=== PATIENT | male | born 1940 | race Caucasian/White ===

== ENCOUNTER → 2017-05-30 | Outpatient (CLI) | payer MEDICARE, OTHER ==
[~2017-05-30] MED LIST: ACET500T68 PO; ASP325 PO; ASPI-757 PO; ASPIRIN; CEP500 PO; CINN500C12 PO; FAM20 PO; IBU600 PO; LISI2.5T60 PO; LOR5/325 PO
[2017-05-30 08:49] LABS: LDL CHOLESTEROL 117 mg/dl
== END ==
LOC: LAB 07:31
PROVIDERS: ATTEND Internal Medicine
DX: I10 Essential (primary) hypertension (principal); E78.5 Hyperlipidemia, unspecified
CPT/HCPCS: 36415; 82040; 82247; 82310; 82374; 82435; 82465; 82565; 82947; 83718; 84075; 84132; 84155; 84295; 84450; 84460; 84478; 84520

== ENCOUNTER → 2017-12-10 | Outpatient (CLI) | payer MEDICARE, OTHER ==
[~2017-12-10] MED LIST changes: +ASPI81TA94 PO
[2017-12-10 07:55] LABS: LDL CHOLESTEROL 109 mg/dl
== END ==
LOC: LAB 06:37
PROVIDERS: ATTEND Internal Medicine
DX: Z12.5 Encounter for screening for malignant neoplasm of prostate (principal); I10 Essential (primary) hypertension; E78.5 Hyperlipidemia, unspecified
CPT/HCPCS: 36415; G0103; 82040; 82247; 82310; 82374; 82435; 82465; 82565; 82947; 83718; 84075; 84132; 84153; 84155; 84295; 84450; 84460; 84478; 84520

== ENCOUNTER → 2018-05-14 | Outpatient (CLI) | payer MEDICARE, OTHER ==
[2018-05-14 07:08] LABS: LDL CHOLESTEROL 115 mg/dl
== END ==
LOC: LAB 06:38
PROVIDERS: ATTEND Internal Medicine
DX: E78.5 Hyperlipidemia, unspecified (principal); I10 Essential (primary) hypertension
CPT/HCPCS: 36415; 82040; 82247; 82310; 82374; 82435; 82465; 82565; 82947; 83718; 84075; 84132; 84155; 84295; 84450; 84460; 84478; 84520

== ENCOUNTER → 2018-10-01 | Outpatient (CLI) | payer MEDICARE, OTHER ==
[2018-10-01 14:59] LABS: PLATELET COUNT, AUTOMATED 334 K/uL (150-450)
--- NOTE | 2018-10-01 15:06 | EKG ---
FACILITY: [facility] - [place] PATIENT NAME: JACQUI PERAZA : [id number] MR: [id number] V: [id number] EXAM DATE: ORDERING PHYSICIAN: MARIAM FOWLER TECHNOLOGIST: NOAH Test Reason : A FIB Blood Pressure : / mmHG Vent. Rate : 071 BPM Atrial Rate : 256 BPM P-R Int : 000 ms QRS Dur : 092 ms QT Int : 414 ms P-R-T Axes : 000 -10 -01 degrees QTc Int : 449 ms Atrial flutter with variable AV block Abnormal ECG No previous ECGs available Confirmed by VANI JOSEPH ([id number]) on 10/02/2018 12:59:09 AM Referred By: LYLA Confirmed By:VANI JOSEPH
== END ==
LOC: LAB 14:27
PROVIDERS: ATTEND Family Medicine
DX: R17 Unspecified jaundice (principal); R19.7 Diarrhea, unspecified; R63.0 Anorexia; R63.4 Abnormal weight loss; I48.91 Unspecified atrial fibrillation
CPT/HCPCS: 36415; 80074; 81001; 82150; 82248; 83690; 84443; 85025; G0472; 82040; 82247; 82310; 82374; 82435; 82565; 82947; 84075; 84132; 84155; 84295; 84450; 84460; 84520; 86803

== ENCOUNTER → 2018-10-01 | Outpatient (CLI) | payer MEDICARE, OTHER ==
[~2018-10-01] MED LIST changes: +IOPAMIDOL 76% 100 ML INFUS BTL 100 ML ONE
--- NOTE | 2018-10-01 18:21 | RADIOLOGY IMAGING REPORT ---
FACILITY: [facility] - [place] PATIENT NAME: Kristofer Arredondo : 1940 MR: [id number] V: [id number] EXAM DATE: ORDERING PHYSICIAN: MARIAM FOWLER TECHNOLOGIST: [place] [facility] [place] Patient: Kristofer Arredondo : 1940 Visit/Account:[id number] Date of Sevice: 10/01/2018 ADDENDUM #1 ADDENDUM: These findings were discussed with MARIAM FOWLER at 10/01/2018 6:31 PM. Report Dictated By: Laurent Bautista MD at 10/01/2018 6:31 PM Report E-Signed By: Laurent Bautista MD at 10/01/2018 6:31 PM ORIGINAL REPORT EXAMINATION: CT abdomen with IV contrast CT pelvis with IV contrast HISTORY: Jaundice. Weight loss. Diarrhea. Black urine. COMPARISON: None. TECHNIQUE: Axial images were taken through the abdomen and pelvis with intravenous contrast. Sagitt al and coronal reformatted images are also submitted. CONTRAST: 75 mL of IV Isovue-370 One of the following dose optimization techniques was utilized in the performance of this exam: Autom ated exposure control; adjustment of the mA and/or kV according to the patient's size; or use of an i terative reconstruction technique. Specific details can be referenced in the facility's radiology C T exam operational policy. FINDINGS: Liver/biliary: Diffuse dilation of the intrahepatic and extrahepatic biliary ducts with narrowing of the common bile duct at the pancreatic head. There is a 1.2 cm cyst in the right hepatic lobe. There is prominent distention of the gallbladder. Pancreas: There is a 2.5 cm hypoattenuating mass in the head of the pancreas. There is a 9 mm cystic- appearing lesion in the body of the pancreas. There is a 10 mm cystic-appearing lesion in the tail of the pancreas. There is mild dilation of the pancreatic duct. Spleen: Negative. Adrenal glands: Negative. Kidneys: Negative. Pelvic structures: The prostate is enlarged, measuring 5.3 cm in transverse dimension. Bowel: Colonic diverticulosis without evidence of diverticulitis. Normal appendix. Small sliding hiat al hernia. Mildly thickened appearance of the lower esophageal sphincter. Peritoneum/retroperitoneum/mesenteries: No intraperitoneal free air or free fluid. Vessels: Mild plaque along the aorta and iliac arteries. Mild calcified plaque at the renal artery or igins. Musculoskeletal/body wall: Mild left convex curvature of the lumbar spine. Advanced disc degenerative changes throughout the lower lumbar spine and at multiple levels in the lower thoracic spine. Multil evel facet hypertrophy in the lumbar spine. A 2.7 cm lucent lesion with stippled calcifications in th e proximal right femur in the intertrochanteric region, likely an enchondroma. Small fat-containing r ight inguinal hernia. Lymph node assessment: Multiple subcentimeter retroperitoneal and mesenteric lymph nodes. Lower chest: Mild peripheral fibrosis at the lung bases. IMPRESSION: There is a 2.5 cm hypoattenuating mass in the head of the pancreas. This is suspicious for pancreatic adenocarcinoma. The pancreatic head mass is causing obstruction of the common bile duct. There is diffuse dilation of the intrahepatic and extrahepatic biliary ducts and prominent distention of the gallbladder. There is a 9 mm cystic lesion in the body of the pancreas, a 10 mm cystic lesion in the tail the panc reas, and mild dilation of the pancreatic duct. There is a small hiatal hernia and there is a mildly thickened appearance of the lower esophageal sph incter. This thickened appearance could be due to muscular contraction or hypertrophy, however, infla mmation or neoplasm would also be possibilities. Multiple nonacute findings as detailed in the body of the report. Report Dictated By: Laurent Bautista MD at 10/01/2018 5:57 PM Report E-Signed By: Laurent Bautista MD at 10/01/2018 6:17 PM WSN:[id number]
== END ==
LOC: CT 16:43
PROVIDERS: ATTEND Family Medicine
DX: R17 Unspecified jaundice (principal); R19.7 Diarrhea, unspecified; R63.4 Abnormal weight loss
CPT/HCPCS: 74177; Q9967

== ENCOUNTER 2018-10-16 21:09 | Inpatient (IN) | payer MEDICARE, OTHER ==
[~2018-10-16] VITALS: Ht 182.9 cm; Wt 90.7 kg
[~2018-10-16 21:09] MED LIST changes: -CEFE2VIA13 IVP; -ENOX40DI9 SC; -VANC1.756 IV; -[UNRECOGNIZED DRUG - CODE] IVP
[2018-10-16] MEDS ORDERED: LR(*) 1000 ML BAG 2,400 ML IV ONE (21:20)
--- NOTE | 2018-10-16 21:24 | ER Report ---
History and Physical Time Seen By MD: 21:10 HPI/ROS CHIEF COMPLAINT: Found down HISTORY OF PRESENT ILLNESS: 77-year-old male recently diagnosed with pancreatic cancer, has not initiated treatment. Patient has history of hypertension but no other medical problems. Patient has had diarrhea today with 4 loose, nonbloody, nonblack stools. He also notes that urine is dark. He thinks he may have fallen or passed out trying to get in bed. He does not recall events very well. Per his , she checks on him every 30 minutes and noticed that he was on the ground on his last check. Patient is not complaining of pain. He denies shortness of breath, chest pain, fevers, abdominal pain. REVIEW OF SYSTEMS: Constitutional: No fever, no chills. Eyes: No discharge. ENT: No sore throat. Cardiovascular: No chest pain, no palpitations. Respiratory: No cough, no shortness of breath. Gastrointestinal: No abdominal pain, no vomiting. Diarrhea as above Genitourinary: as above Musculoskeletal: No back pain. Skin: jaundice Neurological: No headache. Remainder of the 14 system rev: Yes Allergies: Coded Allergies: Tetracyclines (Verified Allergy, Unknown, 12/25/13) Home Meds Active Scripts Lisinopril (LISINOPRIL) 2.5 Mg Tablet, 1 TAB PO QDAY, #90 TAB 4 Refills Prov:HOWARD CLEMENS MD 12/19/17 Reported Medications Aspirin (ASPIRIN) 81 Mg Tab.chew, 1 TAB PO QDAY, TAB.CHEW 06/06/17 Discontinued Reported Medications Cinnamon Bark (CINNAMON) 500 Mg Capsule, 1 CAP PO DAILY PRN for prn, CAPSULE 12/01/13 Reviewed Nurses Notes: Yes Old Medical Records Reviewed: Yes Smoking Status: Former Smoker Constitutional Vital Sign - Last 24 Hours 10/16/18 10/16/18 10/16/18 10/16/18 21:09 21:19 21:29 21:39 Pulse ? 10/16/18 10/16/18 10/16/18 10/16/18 21:46 21:49 21:59 22:09 Temp 97.9 Pulse 110 ? Resp 22 B/P (MAP) 82/57 Pulse Ox 90 O2 Delivery Room Air 10/16/18 10/16/18 10/16/18 10/16/18 22:16 22:19 22:20 22:29 Pulse 82 86 Resp 20 10 B/P (MAP) 147/120 (129) 86/51 (63) Pulse Ox 95 93 10/16/18 10/16/18 10/16/18 10/16/18 22:30 22:34 22:36 22:39 Pulse 90 Resp 15 B/P (MAP) 97/70 (79) 121/87 (98) 99/66 (77) Pulse Ox 93 10/16/18 10/16/18 10/16/18 10/16/18 22:44 22:54 23:00 23:04 Pulse ? 86 Resp 46 12 B/P (MAP) 97/64 (75) Pulse Ox 93 94 10/16/18 10/16/18 10/16/18 23:14 23:24 23:34 Pulse 78 83 79 Resp 26 11 21 B/P (MAP) 67/51 (56) Pulse Ox 94 96 94 Intake and Output 10/16/18 10/16/18 10/17/18 15:01 23:01 07:01 Intake Total 2415 ml Balance 2415 ml Physical Exam General Appearance: The patient is alert, has no immediate need for airway protection and no signs of toxicity. Eyes: Pupils equal and round no pallor or injection. Scleral icterus ENT, Mouth: Mucous membranes are moist. Respiratory: There are no retractions, lungs are clear to auscultation. Cardiovascular: irregular rate, borderline tachycardia Gastrointestinal: Abdomen is soft and non tender, no masses, bowel sounds normal. Neurological: awake, alert, oriented to person and place, not to events Skin: jaundiced throughout Musculoskeletal: Neck is supple non tender. Extremities are nontender, nonswollen and have full range of motion. DIFFERENTIAL DIAGNOSIS: After history and physical exam differential diagnosis was considered for sepsis, dehydration, electrolyte abnormality, trauma from fall or other emergent cause of symptoms Medical Decision Making Data Points Result Diagram: 10/16/18212010/16/182120 Laboratory Hematology Test 10/16/18 21:21 10/16/18 22:50 Red Blood Count 3.98 M/uL (4.00-5.60) Mean Corpuscular Volume 96.4 fL (80.0-96.0) Mean Corpuscular Hemoglobin 33.0 pg (26.0-33.0) Mean Corpuscular Hemoglobin Concent 34.2 g/dL (32.0-36.0) Red Cell Distribution Width 16.9 % (11.5-14.5) Mean Platelet Volume 9.7 fL (7.2-11.1) Neutrophils (%) (Auto) % (39.4-72.5) Lymphocytes (%) (Auto) % (17.6-49.6) Monocytes (%) (Auto) % (4.1-12.4) Eosinophils (%) (Auto) % (0.4-6.7) Basophils (%) (Auto) % (0.3-1.4) Nucleated RBC Relative Count (auto) /100WBC Neutrophils # (Auto) K/uL (2.0-7.4) Lymphocytes # (Auto) K/uL (1.3-3.6) Monocytes # (Auto) K/uL (0.3-1.0) Eosinophils # (Auto) K/uL (0.0-0.5) Basophils # (Auto) K/uL (0.0-0.1) Nucleated RBC Absolute Count (auto) K/uL Neutrophils % (Manual) 60 % (39.4-72.5) Band Neutrophils % 33 % Lymphocytes % (Manual) 3 % (17.6-49.6) Monocytes % (Manual) 3 % (4.1-12.4) Eosinophils % (Manual) 0 % (0.4-6.7) Basophils % (Manual) 0 % (0.3-1.4) Metamyelocytes % 1 % Target Cells 1+ Peripheral Blood Smear Yes Y/N Sodium Level 136 mmol/L (137-145) Potassium Level 3.1 mmol/L (3.5-5.0) Chloride Level 105 mmol/L (98-107) Carbon Dioxide Level 17 mmol/L (22-30) Blood Urea Nitrogen 24 mg/dl (9-21) Creatinine 1.00 mg/dl (0.66-1.25) Glomerular Filtration Rate Calc > 60.0 Random Glucose 114 mg/dl (75-110) Lactate 4.6 mmol/L (0.7-2.1) Calcium Level 8.7 mg/dl (8.4-10.2) Total Bilirubin 18.5 mg/dl (0.2-1.3) Aspartate Amino Transf (AST/SGOT) 193 U/L (0-35) Alanine Aminotransferase (ALT/SGPT) 162 U/L (0-56) Alkaline Phosphatase 286 U/L (0-126) Total Protein 6.4 g/dl (6.3-8.2) Albumin 3.0 g/dl (3.5-5.0) Lipase 169 U/L (23-300) Stool Leukocytes, Qualitative Positive Chemistry Test 10/16/18 21:21 10/16/18 22:50 White Blood Count 22.2 k/uL (4.5-11.0) Red Blood Count 3.98 M/uL (4.00-5.60) Hemoglobin 13.1 g/dL (14.0-18.0) Hematocrit 38.4 % (42.0-52.0) Mean Corpuscular Volume 96.4 fL (80.0-96.0) Mean Corpuscular Hemoglobin 33.0 pg (26.0-33.0) Mean Corpuscular Hemoglobin Concent 34.2 g/dL (32.0-36.0) Red Cell Distribution Width 16.9 % (11.5-14.5) Platelet Count 380 K/uL (150-450) Mean Platelet Volume 9.7 fL (7.2-11.1) Neutrophils (%) (Auto) % (39.4-72.5) Lymphocytes (%) (Auto) % (17.6-49.6) Monocytes (%) (Auto) % (4.1-12.4) Eosinophils (%) (Auto) % (0.4-6.7) Basophils (%) (Auto) % (0.3-1.4) Nucleated RBC Relative Count (auto) /100WBC Neutrophils # (Auto) K/uL (2.0-7.4) Lymphocytes # (Auto) K/uL (1.3-3.6) Monocytes # (Auto) K/uL (0.3-1.0) Eosinophils # (Auto) K/uL (0.0-0.5) Basophils # (Auto) K/uL (0.0-0.1) Nucleated RBC Absolute Count (auto) K/uL Neutrophils % (Manual) 60 % (39.4-72.5) Band Neutrophils % 33 % Lymphocytes % (Manual) 3 % (17.6-49.6) Monocytes % (Manual) 3 % (4.1-12.4) Eosinophils % (Manual) 0 % (0.4-6.7) Basophils % (Manual) 0 % (0.3-1.4) Metamyelocytes % 1 % Target Cells 1+ Peripheral Blood Smear Yes Y/N Glomerular Filtration Rate Calc > 60.0 Lactate 4.6 mmol/L (0.7-2.1) Calcium Level 8.7 mg/dl (8.4-10.2) Total Bilirubin 18.5 mg/dl (0.2-1.3) Aspartate Amino Transf (AST/SGOT) 193 U/L (0-35) Alanine Aminotransferase (ALT/SGPT) 162 U/L (0-56) Alkaline Phosphatase 286 U/L (0-126) Total Protein 6.4 g/dl (6.3-8.2) Albumin 3.0 g/dl (3.5-5.0) Lipase 169 U/L (23-300) Stool Leukocytes, Qualitative Positive Microbiology Microbiology Date/Time Source Procedure Growth Status 10/16/18 22:50 Stool Gram Stain - Final Resulted 10/16/18 22:50 Stool Stool Culture Pending Resulted EKG/Imaging EKG Interpretation 12 lead EKG: Rhythm: atrial flutter Morrill: normal QRS: normal ST segments: normal atrial flutter with predominantly 3:1 block Monitor Interpretation: Atrial Flutter ED Course/Re-evaluation ED Course 77 y/o m recently dx'd this month with pancreatic cancer, awaiting staging; He is awaiting GI evaluation for endoscopic US of pancreatic mass, PET/CT next sunday for staging Presents after apparent syncopal event and loose stools. Labs sig for 33 bands, with unclear source of infection. Pt remains hypotensive despite 30mL/kg. At this point, I initiated peripheral norepi while consenting for and completing r ij entral line. This performed without complications. Post CL CXR without ptx, cl in place. Pt admitted to ICU in improved condition Procedure Procedure: Central line placement. After written informed consent from ; with the risks explained to be bleeding, infection, and collapsed lung; maximal sterile barrier technique was uses including cap, gown, sterile gloves, large sheet, hand washing and chlorhexidine prep. The area anesthetized with 1% lidocaine. The right IJ was punctured with a 19 gauge finder needle, then a wire introducer was placed, a 7 Nigerien triple lumen was placed using Seldinger technique. There were no compl ications. Blood return low pressure, dark blood. Patient tolerated procedure well. CXR results: Appropriate line placement, and no pneumothorax. Xray was interpreted by myself. Radiologist interpretation is pending. The procedure was performed by myself. Decision to Disposition Date: Oct 17, 2018 Decision to Disposition Time: 00:45 Critical Care Time I spent a total of 65 minutes of critical care time in obtaining history, per forming a physical exam, bedside monitoring of interventions, collecting and interpreting tests and discussion with consultants but not including time spent performing procedures. Depart Departure Latest Vital Signs Vital Signs Date Time Temp Pulse Resp B/P (MAP) Pulse Ox O2 Delivery O2 Flow Rate FiO2 10/16/18 23:34 79 21 67/51 (56) 94 10/16/18 21:46 97.9 Room Air Impression: Primary Impression: Septic shock Condition: Improved Disposition: Admitted from ER Referrals: MARIAM FOWLER DO (PCP) NOEMI ALBARRAN MD Oct 16, 2018 21:24
--- NOTE | 2018-10-16 21:33 | EKG ---
FACILITY: [facility] PATIENT NAME: JACQUI PERAZA : [id number] MR: [id number] V: [id number] EXAM DATE: ORDERING PHYSICIAN: NOEMI ALBARRAN TECHNOLOGIST: NGOZI Test Reason : CP Blood Pressure : / mmHG Vent. Rate : 094 BPM Atrial Rate : 264 BPM P-R Int : 000 ms QRS Dur : 096 ms QT Int : 358 ms P-R-T Axes : 092 -09 -09 degrees QTc Int : 447 ms Atrial flutter with variable AV block Abnormal ECG When compared with ECG of 01-OCT-2018 14:58, No significant change was found Confirmed by SHANTANU RODRÍGUEZ ([id number]) on 10/17/2018 6:05:32 AM Referred By: Confirmed By:SHANTANU RODÍRGUEZ
[2018-10-16 21:50] LABS: PLATELET COUNT, AUTOMATED 380 K/uL (150-450)
[2018-10-16] MEDS ORDERED: VANCOMYCIN(*) 1 GM VIAL 2 GM in NS(*) 0.9% 250 ML BAG 250 ML IVPB ONE (22:10)
[2018-10-16] MEDS ORDERED: CEFEPIME HCL 2 GM VIAL IVP ONE (22:10)
[2018-10-16] MEDS ORDERED: LEVOPHED KIT (*) 1 IVSOL 1 KIT in D5W(*) 250 ML BAG 250 ML IVPB ONE (22:15)
--- NOTE | 2018-10-16 22:16 | RADIOLOGY IMAGING REPORT ---
FACILITY: [facility] - [place] PATIENT NAME: Kristofer Arredondo : 1940 MR: [id number] V: [id number] EXAM DATE: ORDERING PHYSICIAN: NOEMI ALBARRAN TECHNOLOGIST: Location: [facility] - [place] Patient: Kristofer Arredondo : 1940 Visit/Account:[id number] Date of Sevice: 10/16/2018 AP CHEST 10/16/2018 9:19 PM. INDICATION: Dyspnea. COMPARISON: CT abdomen and pelvis 10/01/2018. FINDINGS: Lungs are well-expanded. Diffuse interstitial changes are likely chronic given the appearance of the lung bases on the prior CT. No suspicious consolidation. No pleural effusion or pneumothorax. Heart size is normal. IMPRESSION: Probable chronic interstitial changes with no apparent acute abnormality. Report Dictated By: Luke Monroy MD at 10/16/2018 10:07 PM Report E-Signed By: Luke Monroy MD at 10/16/2018 10:11 PM WSN:[id number]
[2018-10-17] VITALS (91 sets, daily range): BP systolic 68–147; BP diastolic 32–132
--- NOTE | 2018-10-17 00:38 | RADIOLOGY IMAGING REPORT ---
FACILITY: [facility] - [place] PATIENT NAME: Kristofer Arredondo : 1940 MR: [id number] V: [id number] EXAM DATE: ORDERING PHYSICIAN: NOEMI ALBARRAN TECHNOLOGIST: [place] [facility] [place] Kristofer Arredondo : 1940 Visit/Account:[id number] Date of Sevice: 10/16/2018 AP CHEST 10/16/2018 11:40 PM. INDICATION: Central line placement. COMPARISON: Same-day radiograph. FINDINGS: New right IJ central venous catheter terminates near the superior vena cava. Lung expansion is slightly decreased. There is increased interstitial prominence compared to the too or examination. No definite pleural effusion or pneumothorax. Heart size is unchanged. IMPRESSION: 1. New right IJ central venous catheter appears appropriately positioned. 2. Question developing pulmonary edema.. Report Dictated By: Luke Monroy MD at 10/17/2018 12:30 AM Report E-Signed By: Luke Monroy MD at 10/17/2018 12:32 AM WSN:[id number]
[2018-10-17] MEDS ORDERED: KCL 2 MEQ/ML 20 MEQ/10 ML VIAL 20 MEQ in NS(*) 0.9% 1000 ML BAG 1,000 ML IV PRN (00:57)
[2018-10-17] MEDS ORDERED: NOREPINE BITAR* 4 MG/4 ML AMP 4 MG in D5W(*) 250 ML BAG 246 ML IV PRN (01:00)
[2018-10-17] MEDS ORDERED: NS(*) 0.9% 1000 ML BAG 1,000 ML ONE ×2 (01:00→04:22)
[2018-10-17] MEDS ORDERED: INFLUENZA VIRUS VAC 0.5ML SYR IM ONLY ONE (01:00)
--- NOTE | 2018-10-17 01:14 | History & Physical ---
History of Present Illness Chief Complaint Weakness History of Present Illness This patient presented to the emergency room with complaints of weakness and fatigue. He was diagnosed with pancreatic cancer one week ago, but has not started treatments yet. He did have a pancreatic biopsy and stent placement one week ago in [place]. He also had a ureteral stent placed. His family does report that he had a fall earlier today. History Problems: (1) Pancreatic cancer (2) Essential hypertension Status: Acute Home Meds Active Scripts Lisinopril (LISINOPRIL) 2.5 Mg Tablet, 1 TAB PO QDAY, #90 TAB 4 Refills Prov:HOWARD CLEMENS MD 12/19/17 Reported Medications Aspirin (ASPIRIN) 81 Mg Tab.chew, 1 TAB PO QDAY, TAB.CHEW 06/06/17 Discontinued Reported Medications Cinnamon Bark (CINNAMON) 500 Mg Capsule, 1 CAP PO DAILY PRN for prn, CAPSULE 12/01/13 Allergies: Coded Allergies: Tetracyclines (Verified Allergy, Unknown, 12/25/13) Patient History: AIDS MOTHER (Polycythemia, transfusions and of brain cancer.), , Age:78 (blood transfusion) FH: CHF (congestive heart failure) Paternal Grandmother, , Age:92 FH: brain tumor MOTHER (Polycythemia, transfusions and of brain cancer.), , Age:78 FH: hypertension BROTHER OR SISTER (Age 73 and has hypertension), Age:78 FH: polycythemia vera MOTHER (Polycythemia, transfusions and of brain cancer.), , Age:78 FH: prostate cancer FATHER ( of Prostate Cancer), , Age:77, Onset:75 Hypoglycemia MOTHER (Polycythemia, transfusions and of brain cancer.), , Age:78 Smoking Status: Former Smoker Review of Systems All Systems Reviewed/Normal: Yes, Except as Noted Neurological: Weakness Gastrointestinal: Diarrhea Exam Vital Signs Vital Signs Date Time Temp Pulse Resp B/P (MAP) Pulse Ox O2 Delivery O2 Flow Rate FiO2 10/17/18 00:30 182/128 (146) 10/17/18 00:29 87 ??? 88 10/16/18 21:46 97.9 Room Air Neuro: No Gross deficits Eyes: PERRLA Cardiovascular: Regular Rate and Rhythm Respiratory: Clear to Auscultation GI: Abd Soft and Non-Tender Extremities: No Edema Integumentary: Jaundice Medical Decision Making Data Points Result Diagram: 10/16/18212010/16/182120 Assessment and Plan Problems: (1) Septic shock Status: Acute Assessment & Plan: He does have hypotension, an elevated WBC, and lactic aci dosis. He received a fluid bolus in the emergency department and was also started on a norepinephrine infusion. His repeat lactate remains elevated and we are repeating the fluid bolus. We have also started him on hydrocortisone. The source of his infection is unclear at this time. A urine culture has been ordered. We have placed him on empiric treatment with vancomycin and cefepime. (2) Pancreatic cancer Assessment & Plan: He was diagnosed with pancreatic cancer one week ago. He is followed through the Cancer Center, but has not yet started treatments. He is significantly jaundiced. Copies to: ELMA HARRISON MD ; Venous Thromboembolism Antithrombotics Is Pt On Any Antithrombotics?: No Exam Sepsis Risk: No Definite Risk SHANTANU RODRÍGUEZ DO Oct 17, 2018 01:14
[2018-10-17] MEDS ORDERED: IV BOLUS 500 ML IVSOL IV ONE (01:15)
[2018-10-17] MEDS: HYDROCORTISONE 100 MG/2 ML IVP SCH ×3 (01:28→17:27)
[2018-10-17] MEDS: ZOLPIDEM TARTRATE 10 MG TAB PO PRN ×2 (01:28→20:59)
[2018-10-17] MEDS ORDERED: NS 0.9% IV ONE (01:30)
[2018-10-17] MEDS ORDERED: KCL/NS* 20 MEQ/1000 ML PREMIX 1,000 ML IV ONE (04:29)
[2018-10-17 05:55] LABS: PLATELET COUNT, AUTOMATED 281 K/uL (150-450)
[2018-10-17] MEDS ORDERED: IOPAMIDOL 76% 100 ML INFUS BTL 100 ML ONE (07:58)
--- NOTE | 2018-10-17 08:53 | Hospitalist Progress Note ---
Subjective Progress Notes Subjective He is awake and answers questions. He denies any "aches or pains" or N/V. Physical Exam Vital Signs Date Time Temp Pulse Resp B/P (MAP) Pulse Ox O2 Delivery O2 Flow Rate FiO2 10/17/18 07:15 85 23 113/83 (93) 91 Nasal Cannula 3.0 10/17/18 06:00 102.0 Intake and Output 10/17/18 07:01 Intake Total 5998.1 ml Output Total 560 ml Balance 5438.1 ml Intake Oral 50 ml IV Total 5948.1 ml Output Urine Total 560 ml # Bowel Movements 1 General Appearance: Awake, Other (deeply jaundiced/he is oriented to person and place, but not time) Neuro: Other (moves all four extremities) Eyes: Other (scleral icterus) ENT: Oropharynx Clear Neck: No Masses Cardiovascular: Other (Fairly regular distant tones/no obvious murmur) Respiratory: Other (poor effort but fairly clear) Chest: No Tenderness GI: Other (obese/soft/nontender to palpation/BS present) Extremities: Warm, Perfused Integumentary: Other (deeply jaundiced) Result Diagram: 10/17/18 0506 10/17/18 0506 Monitor Interpretation: Atrial Flutter Assessment and Plan Problems: (1) Septic shock Status: Acute Assessment & Plan: He did present with hypotension, an elevated WBC, and lactic acidosis. He has received aggressive IV fluids and started on a norepinephrine infusion. We have also started him on Levophed and hydrocortisone. The source of his infection is not completely clear at this time. Blood, stool and urine cultures are pending. We currently have him on empiric treatment with IV vancomycin and cefepime. Will get CT scan of his chest, abdomen and pelvis to see if can elucidate a source. Would suspect his biliary system is probable/possible source, especially given recent stent placement. (2) Pancreatic cancer Assessment & Plan: He was diagnosed with pancreatic cancer one week ago. He had biopsy and biliary stent placed on Sun10/11/18 in [place], [place]. Will see if can get records. He is followed through the Cancer Center, but has not yet started treatments. (3) UNSPECIFIED ATRIAL FLUTTER Assessment & Plan: He is currently rate controlled. Unknown how long this has been present. EKG from a few weeks ago showed it as well. Will check echocardiogram. He is on DVT prophylaxis Lovenox currently. Will hold off on full anticoagulation for now. Exam Sepsis Risk: Severe Sepsis Risk AP GAGE MD Oct 17, 2018 08:53
--- NOTE | 2018-10-17 09:27 | RADIOLOGY IMAGING REPORT ---
FACILITY: [facility] [place] PATIENT NAME: Kristofer Arredondo : 1940 MR: [id number] V: [id number] EXAM DATE: ORDERING PHYSICIAN: AP GAGE TECHNOLOGIST: Location: [facility] Patient: Kristofer Arredondo : 1940 Visit/Account:[id number] Date of Sevice: 10/17/2018 CT CHEST ABDOMEN PELVIS W/CON HISTORY: Sepsis/possible cholangitis TECHNIQUE: CT thoracic inlet to the pubic symphysis was obtained with IV contrast. One of the following dose optimization techniques was utilized in the performance of this exam: autom ated exposure control; adjustment of the mA and/or kV according to the patient's size; or use of an i terative reconstruction technique. Specific details can be referenced in the facility's radiology CT exam operational policy. CONTRAST: 75 mL Isovue-370 IV. COMPARISON: CT abdomen and pelvis 10/01/2018 FINDINGS: CHEST: Lungs/pleura: Lungs are clear. Mild motion artifact is seen in both bases. Mild dependent atelecta sis bilaterally is noted. Mediastinum: Heart size is normal. There is no adenopathy. There is a right-sided central line wit h its tip in the high right atrium in good position. Bones/soft tissues: Negative. ABDOMEN/PELVIS: Liver/gallbladder: Liver demonstrates normal enhancement. There is a simple cyst in the right lobe the liver near the dome. Intrahepatic biliary dilatation is seen, unchanged from the prior study. T here is a new stent in the common bile duct. Spleen: Normal. Adrenals: Normal. Pancreas: In the head of the pancreas there is a low-attenuation mass, 2.6 x 3.0 cm. This is unchan ged from the prior study. Pancreatic duct is normal in size. There is a 0.9 cm cystic mass in the b janes of pancreas, unchanged. There is a 0.8 cm lymph node between the stomach and the pancreas, uncha nged. Kidneys/: Both kidneys demonstrate normal enhancement without evidence of hydronephrosis or mass. The urinary bladder is normal. Pelvis/Bladder: Castellon catheter is seen in the urinary bladder. GI: Diverticular changes on the sigmoid colon are seen. Small bowel is normal. There is a moderate gastric hiatal hernia. Vessels/nodes: Negative. Bones/soft tissues: There are no lytic or blastic bone lesions. IMPRESSION: 1. Abnormal mass in the head of the pancreas, suspicious for pancreatic adenocarcinoma. This is unc hanged in size from comparison 10/01/2018. There is an abnormal lymph node between the stomach and pa ncreas, suspicious for metastasis. 2. New stent in the common bile duct. 3. Intrahepatic biliary dilatation, unchanged from comparison CT 10/01/2018. 4. No focal evidence of pulmonary pneumonia or abscess in abdomen or pelvis. Report Dictated By: Kristofer Goins at 10/17/2018 8:44 AM Report E-Signed By: Kristofer Goins at 10/17/2018 9:22 AM WSN:[email or web address]
[2018-10-17] MEDS: ENOXAPARIN 40 MG/0.4ML SYR SC SCH (09:35)
[2018-10-17] MEDS: CEFEPIME HCL 2 GM VIAL IVP SCH ×2 (10:06→22:18)
[2018-10-17] MEDS: VANCOMYCIN(*) 1 GM VIAL 1 GM, VANCOMYCIN HCL 0.750 GM VIAL 0.75 GM in NS(*) 0.9% 250 ML... IVPB SCH ×2 (11:08→23:03)
[2018-10-17] MEDS: KCL/NS* 20 MEQ/1000 ML PREMIX 1,000 ML IV PRN ×2 (12:54→19:20)
--- NOTE | 2018-10-17 13:46 | Medical Nutrition Therapy ---
Nutrition Anthropometrics Height (Inches): 72.00 Height (Calculated Centimeters: 182.493889 Weight (Pounds): 212 Weight (Calculated Kilograms): 96.388 BMI: 27.1 Hx Weight Loss: Yes (5% loss x 5 months (Previous visit 05/23/18 wt was 224 lbs) ) Nba Nutrition Score: Probably Inadequate Nba Nutrition Risk Score: 14 Dietary Referral Nutrition Risk Factors: Nutrition Risk Comment: Physical Findings Physical Appearance: Overweight BMI 25-29 Skin Appearance Skin Appearance: Jaundice Edema Edema Location Modifier: Both Edema Location: Lower Extremity Type of Edema: Degree of Edema: 1+ Gastrointestinal Symptoms GI Symtoms: Change in Bowel Pattern Tube Present: Bowel Sounds: Hyperactive Recent Bowel Pattern: Diarrhea Stool Characteristics: Nutritional Diagnosis Nutritional Risk Acuity 3: Cancer Past Medical History: A Fib, pancreatic cancer, sepsis Nutritional Acuity: 2-Moderate Energy Requirement: 2764 Protein Requirement: 96 (1g/kg) Fluid Requirement: 2409 (25mL/kg) Nutrition Intervention: Encourage intake, Between meal supplement Food Likes: Milkshakes, Milk Diet Comment To RSA: Please allow pt to order Boost, Mighty Shake, Magic Cups, Ensure Enlive, Ensure Clear as needed. Add 2 scoops beneprotein to milkshakes. Nutrition Monitoring & Eval Nutrition Monitoring: Monitor intake, need for nutrition support RD Patient Assessment Time: [address] Assessment Type: RD Assessment Patient Nutrition Acuity: 2-Moderate Follow Up Date: Oct 22, 2018 Nutritional Comment: 10/17/18-Spoke with pt family as pt was sleeping. States pt appetite has been poor. Has lost weight. Reviewed PMH, pt recent dx with pancreatic cancer, severe sepsis. Pt has lost 5% of body weight over 5 months (visit 05/23/18 wt was 224 lbs). Currently recieving IV Ab. Will allow pt and family to order oral nutrition supplements as needed to better meet energy needs. Pt has elevated energy needs related to sepsis and cancer. Will continue to monitor intake. If intake is low would recommend nutrition support.AIDAN MAE Oct 17, 2018 13:46
[2018-10-18] VITALS (42 sets, daily range): BP systolic 78–121; BP diastolic 46–88
[2018-10-18] MEDS: HYDROCORTISONE 100 MG/2 ML IVP SCH ×2 (00:59→08:44)
[2018-10-18] MEDS: KCL/NS* 20 MEQ/1000 ML PREMIX 1,000 ML IV PRN (03:48)
[2018-10-18 05:57] LABS: PLATELET COUNT, AUTOMATED 203 K/uL (150-450)
[2018-10-18] MEDS ORDERED: KCL/NS* 20 MEQ/1000 ML PREMIX 1,000 ML IV PRN (08:36)
[2018-10-18] MEDS: ENOXAPARIN 40 MG/0.4ML SYR SC SCH (08:45)
--- NOTE | 2018-10-18 09:51 | Hospitalist Depart ---
Discharge Summary Reason for Hosp/Final Diag: (1) Septic shock Status: Acute Hospital Course & Plan: He presented to the ER after falling own with dark urine and 4 loose stools the day of admission. He was hypotension, had an elevated WBC, and lactic acidosis. He has acute cholangitis, see below. He is growing GNR from both blood cultures. He has received aggressive IV fluids and started on a norepinephrine infusion and hydrocortisone. He was weaned off the norepinephrine this morning. Lactate has normalitized. WBC has increased to 35k. Afebrile since the morning of 10/17. We currently have him on empiric treatment with IV vancomycin and cefepime. He has been accepted for transfer to [facility] in [place] to their medical ICU. Dr. Cross is the GI physician. (2) Acute cholangitis Status: Acute Hospital Course & Plan: Secondary to common bile duct stent obstruction vs pancreatic head mass. See below. Total bilirubin was 15 on 10/01 prior to the stent placement. It was 18.5 upon admission and is 20 today. Alk phos is elevate but relatively unchanged since 10/01. AST/ALT increased from 10/01. He last ate at 0800 some water and a boost drink. (3) Pancreatic cancer Hospital Course & Plan: He was diagnosed with pancreatic cancer one week ago. He had biopsy and biliary stent placed on 10/11 in [place], [place]. He is [facility] through the Cancer [facility], but has not yet started treatments nor has he had PET scanning. (4) UNSPECIFIED ATRIAL FLUTTER Hospital Course & Plan: He is currently rate controlled. Unknown how long this has been present. EKG from a few weeks ago showed it as well. He is on DVT prophylaxis Lovenox currently. Currently, holding off on full anticoagulation for now. Departure Weight (Pounds): 212 Weight (Ounces): 8.0 Result Diagram: 10/18/1850910/18/18509 Item Value Date Time Urine Leukocyte Esterase Negative 10/17/18 043 Urine RBC 18 /HPF 10/17/18 0439 Urine WBC 9 /HPF 10/17/18 0439 Urine WBC Clumps Many /HPF 10/17/18 0439 Urine Squamous Epithelial Cells None /LPF 10/17/18 0439 Urine Transitional Epithelial Cells Many /LPF H 10/17/18 0439 Urine Amorphous Crystals Few /HPF 10/17/18 0439 Urine Bacteria Few /HPF 10/17/18 0439 Urine Red Blood Cell Casts Many /LPF H 10/17/18 0439 Urine Mucus Few /HPF 10/17/18 0439 Urine Urobilinogen 2.0 mg/dL 10/17/18 0439 Neutrophils % (Manual) 88 % H 10/18/18 0510 Band Neutrophils % 3 % 10/18/18 0510 Lymphocytes % (Manual) 3 % L 10/18/18 0510 Monocytes % (Manual) 2 % L 10/18/18 0510 Eosinophils % (Manual) 1 % 10/18/18 0510 Basophils % (Manual) 0 % L 10/18/18 0510 Metamyelocytes % 3 % 10/18/18 0510 Myelocytes % 1 % 10/18/18 0510 Prothromb Time International Ratio 1.12 12/18/06 0613 Total Bilirubin 15.0 mg/dl *H 10/01/18 1446 Total Bilirubin 0.6 mg/dl 05/14/18 0643 Aspartate Amino Transf (AST/SGOT) 20 U/L 05/14/18 0643 Aspartate Amino Transf (AST/SGOT) 120 U/L H 10/01/18 1446 Direct Bilirubin 12.4 mg/dl H 10/01/18 1446 Alanine Aminotransferase (ALT/SGPT) 216 U/L H 10/01/18 1446 Alkaline Phosphatase 216 U/L H 10/01/18 1446 Alkaline Phosphatase 56 U/L 05/14/18 0643 Alanine Aminotransferase (ALT/SGPT) 27 U/L 05/14/18 0643 Amylase Level 84 U/L 10/01/18 1446 Lipase 975 U/L H 10/01/18 1446 Lipase 169 U/L 10/16/181 Sodium Level 136 mmol/L L 10/16/182120 Potassium Level 3.1 mmol/L L 10/16/182120 Chloride Level 105 mmol/L 10/16/182120 Carbon Dioxide Level 17 mmol/L L 10/16/182120 Blood Urea Nitrogen 24 mg/dl H 10/16/182120 Creatinine 1.00 mg/dl 10/16/182120 Lactate 4.6 mmol/L *H 10/16/182120 Lactate 4.0 mmol/L *H 10/17/18 0059 Lactate 4.8 mmol/L *H 10/17/18 0420 Total Bilirubin 18.5 mg/dl *H 10/16/18 2121 Aspartate Amino Transf (AST/SGOT) 193 U/L H 10/16/181 Alanine Aminotransferase (ALT/SGPT) 162 U/L H 10/16/181 Alkaline Phosphatase 286 U/L H 10/16/18 2121 Albumin 3.0 g/dl L 10/16/18 212 Total Bilirubin 17.7 mg/dl *H 10/17/18 0506 Aspartate Amino Transf (AST/SGOT) 327 U/L H 10/17/18 0506 Alanine Aminotransferase (ALT/SGPT) 165 U/L H 10/17/18 0506 Alkaline Phosphatase 243 U/L H 10/17/18 0506 Total Protein 5.4 g/dl L 10/17/18 0506 Albumin 2.5 g/dl L 10/17/18 0506 Magnesium Level 1.5 mg/dl L 10/17/18 0506 Lactate 4.2 mmol/L *H 10/17/18 0704 Lactate 3.4 mmol/L H 10/17/18 1155 Lactate 3.1 mmol/L H 10/17/18 2015 Lactate 1.7 mmol/L 10/18/18 0510 Total Bilirubin 20.2 mg/dl *H 10/17/18 1155 Aspartate Amino Transf (AST/SGOT) 379 U/L H 10/17/18 1155 Alanine Aminotransferase (ALT/SGPT) 210 U/L H 10/17/18 1155 Alkaline Phosphatase 203 U/L H 10/17/18 1155 Total Protein 5.5 g/dl L 10/17/18 1155 Albumin 2.5 g/dl L 10/17/18 1155 Total Bilirubin 20.0 mg/dl *H 10/18/18 0510 Aspartate Amino Transf (AST/SGOT) 366 U/L H 10/18/18 0510 Alanine Aminotransferase (ALT/SGPT) 218 U/L H 10/18/18 0510 Alkaline Phosphatase 223 U/L H 10/18/18 0510 Total Protein 6.0 g/dl L 10/18/18 0510 Albumin 2.7 g/dl L 10/18/18 0510 Magnesium Level 1.8 mg/dl 10/18/18 0510 Carbon Dioxide Level 16 mmol/L L 10/17/18 1155 Blood Urea Nitrogen 20 mg/dl 10/17/18 1155 Creatinine 0.80 mg/dl 10/17/18 1155 Random Glucose 113 mg/dl H 10/17/18 1155 White Blood Count 22.2 k/uL H 10/16/181 White Blood Count 21.5 k/uL H 10/17/18 0506 White Blood Count 35.5 k/uL *H 10/18/18 0510 Neutrophils % (Manual) 60 % 10/16/182120 Band Neutrophils % 33 % 10/16/182120 Neutrophils % (Manual) 67 % 10/17/18 0506 Lymphocytes % (Manual) 2 % L 10/17/18 0506 Hemoglobin 13.1 g/dL L 10/16/18 2121 Hemoglobin 11.8 g/dL L 10/17/18 0506 Hemoglobin 11.3 g/dL L 10/18/18 0510 Mean Corpuscular Volume 96.4 fL H 10/16/181 Mean Corpuscular Volume 97.4 fL H 10/17/18 0506 Mean Corpuscular Volume 97.3 fL H 10/18/18 0510 Platelet Count 380 K/uL 10/16/182120 Platelet Count 281 K/uL 10/17/18 0506 Platelet Count 203 K/uL 10/18/18 0510 Stool Leukocytes, Qualitative Positive 10/16/18 2250 Hepatitis A IgM Antibody Negative 10/01/18 1446 Hepatitis B Surface Antigen Negative 10/01/18 1446 Hepatitis B Core IgM Antibody Negative 10/01/18 1446 Hepatitis C Antibody Negative 10/01/18 1446 Hepatitis C Antibody 0.02 IV 10/01/18 1446 Hepatitis C Interpretation Negative 10/01/18 1446 SPEC #: [id number] WALI: 10/16/18 STATUS: RES REQ #: [id number] RECD: 10/16/[address]: NOEMI ALBARRAN MD SOURCE: BLOOD PER ENTR: 10/16/[address]: MARIAM FOWLER DO [facility]: ORDERED: BCGS, CULT BLOOD Procedure Result Verified BLOOD CULTURE GRAM STAIN Final 10/17/18 ANAEROBIC BOTTLE POSITIVE GRAM NEGATIVE RODS POSITIVE BLOOD CULTURE GRAM STAIN REPORT CALLED TO: TYLER MELÉNDEZ RN, ICU DATE/TIME REPORT CALLED: 10/17/18 11:55 DK BLOOD CULTURE Preliminary 10/17/18 Organism 1 GRAM NEGATIVE ANTONY GROWTH PRESENT IN THE ANAEROBIC BOTTLE ID AND SENSITIVITY TO FOLLOW SPEC #: [id number] WALI: 10/16/18 STATUS: RES REQ #: [id number] RECD: 10/16/18 [facility] DR: NOEMI ALBARRAN MD SOURCE: BLOOD LINE ENTR: 10/16/[address] [facility] [address]: MARIAM FOWLER DO [facility]: ORDERED: BCGS, CULT BLOOD Procedure Result Verified BLOOD CULTURE GRAM STAIN Final 10/17/18-1204 GROWTH IN BOTH THE AEROBIC AND ANAEROBIC BOTTLES GRAM NEGATIVE RODS POSITIVE BLOOD CULTURE GRAM STAIN REPORT CALLED TO: TYLER MELÉNDEZ RN, ICU DATE/TIME REPORT CALLED: 10/17/18 11:55 DK BLOOD CULTURE Preliminary 10/17/18-120 Organism 1 GRAM NEGATIVE ANTONY GROWTH PRESENT IN BOTH THE AEROBIC AND ANAEROBIC BOTTLES ID AND SENSITIVITY TO FOLLOW SPEC #: [id number] WALI: 10/16/18 STATUS: RES REQ #: [id number] RECD: 10/16/18 [facility] DR: NOEMI ALBARRAN MD SOURCE: STOOL ENTR: 10/16/[address] [facility] [address]: MARIAM FOWLER DO [facility]: ORDERED: CULT STOOL/GS Procedure Result Verified GRAM STAIN Final 10/16/18-532 GRAM POSITIVE COCCI GRAM NEGATIVE COCCI GRAM POSITIVE RODS GRAM NEGATIVE RODS FEW WHITE BLOOD CELLS STOOL CULTURE Preliminary 10/17/18-897 NORMAL SO FAR, CULTURE SET UP LATE, CULTURE REINCUBATED Imaging 10/17/18 Chest/Abd/Pelvis CT - 1. Abnormal mass in the head of the pancreas, suspicious for pancreatic adenocarcinoma. This is unchanged in size from comparison 10/01/2018. There is an abnormal lymph node between the stomach and pancreas, suspicious for metastasis. 2. New stent in the common bile duct. 3. Intrahepatic biliary dilatation, unchanged from comparison CT 10/01/2018. 4. No focal evidence of pulmonary pneumonia or abscess in abdomen or pelvis. 10/16/18 CXR - 1. New right IJ central venous catheter appears appropriately positioned. 2. Question developing pulmonary edema.. 10/16/18 CXR - Probable chronic interstitial changes with no apparent acute abnormality. EKG Vent. Rate : 094 BPM Atrial Rate : 264 BPM P-R Int : 000 ms QRS Dur : 096 ms QT Int : 358 ms P-R-T Axes : 092 -09 -09 degrees QTc Int : 447 ms Atrial flutter with variable AV block Abnormal ECG When compared with ECG of 01-OCT-2018 14:58, No significant change was found Confirmed by SHANTANU RODRÍGUEZ ([id number]) on 10/17/2018 6:05:32 AM Condition: Critical Discharge: Another Hospital Discharge Instructions Home Meds Active Scripts Vancomycin/0.9 % Sod Chloride (Vanco 1.75 gm/500 ml-0.9% NaCl) 1.75 Gram/500 Ml Plast..bag, 1.75 G IV Q12H@1100,2300, #1 Prov:VANI JOSEPH MD 10/18/18 Hydrocortisone Sod Succ/Pf (SOLU-CORTEF 100 MG VIAL) 100 Mg/2 Ml Vial, 100 MG IVP Q8H for 1 Day, VIAL Prov:VANI JOSEPH MD 10/18/18 Enoxaparin Sodium (ENOXAPARIN SODIUM) 40 Mg/0.4 Ml Disp.syrin, 40 MG SC Q24H for 1 Day, Prov:VANI JOSEPH MD 10/18/18 Cefepime Hcl (CEFEPIME HCL) 2 Gm Vial, 2 GM IVP 1030,2230 for 1 Day, VIAL Prov:VANI JOSEPH MD 10/18/18 Discontinued Reported Medications Aspirin (ASPIRIN) 81 Mg Tab.chew, 1 TAB PO QDAY, TAB.CHEW 06/06/17 Cinnamon Bark (CINNAMON) 500 Mg Capsule, 1 CAP PO DAILY PRN for prn, CAPSULE 12/01/13 Discontinued Scripts Lisinopril (LISINOPRIL) 2.5 Mg Tablet, 1 TAB PO QDAY, #90 TAB 4 Refills Prov:HOWARD CLEMENS MD 12/19/17 Activity: As Tolerated Special Instructions: NPO Copies to: ZEB BRUCE MD; ELMA HARRISON MD; MARIAM FOWLER DO ; Venous Thromboembolism Antithrombotics Is Pt On Any Antithrombotics?: No VANI JOSEPH MD Oct 18, 2018 09:51
[2018-10-18] MEDS ORDERED: VANC1.756 IV (09:54)
[2018-10-18] MEDS ORDERED: CEFE2VIA13 IVP (09:54)
[2018-10-18] MEDS ORDERED: [UNRECOGNIZED DRUG - CODE] IVP (09:54)
[2018-10-18] MEDS ORDERED: ENOX40DI9 SC (09:54)
[2018-10-18] MEDS: CEFEPIME HCL 2 GM VIAL IVP SCH (10:16)
--- NOTE | 2018-10-18 10:28 | Antimicrobial Stewardship ---
Antimicrobial Time Out Antimicrobial Stewardship MD Service: Hospitalist Indications: Other (SPESIS) Antimicrobial Used VANCO, CEFEPIME Start Date: Oct 16, 2018 Culture Results: No Eligible for PO Conversion Eligable for PO Conversion: No Reviewed with Provider Reviewed w/ Provider on Rounds: No Comments Comments PATIENT STARTED ON EMPERIC THERAPY - NOW TRANSFERRING OUT ZACHARIAH YOST Oct 18, 2018 10:28
== END 2018-10-18 11:00 | disposition short-term general hospital (02) | DRG 871 ==
LOC: ER 21:16 → ICU 10-17 00:04
PROVIDERS: ADMIT Family Medicine; ATTEND Family Medicine
PROC: 02HV33Z Insertion of Infusion Device into Superior Vena Cava, Percutaneous Approach (ICD-10-PCS; principal; 2018-10-16)
DX: A41.9 Sepsis, unspecified organism (principal); R65.21 Severe sepsis with septic shock; K80.33 Calculus of bile duct with acute cholangitis with obstruction; E87.2 Acidosis; C25.0 Malignant neoplasm of head of pancreas; I48.2 Chronic atrial fibrillation; I10 Essential (primary) hypertension; Z88.8 Allergy status to other drugs, medicaments and biological substances; Z87.891 Personal history of nicotine dependence; Z79.82 Long term (current) use of aspirin
CPT/HCPCS: 71045; 71260; 74177; 80202; 81001; 82040; 82247; 82310; 82374; 82435; 82565; 82947; 83605; 83630; 83690; 83735; 84075; 84132; 84155; 84295; 84450; 84460; 84520; 85025; 87040; 87045; 87077; 87088; 87186; 87205; 93005; 96361; 96365; 96368; 96375; 99291; C1758; J0692; J1650; J1720; J3370; J3480; J3490; J7030; J7050; J7060; J7120; Q9967

== ENCOUNTER → 2018-10-16 | Outpatient (CLI) | payer MEDICARE, OTHER ==
[~2018-10-16] MED LIST changes: +CEFE2VIA13 IVP; +ENOX40DI9 SC; -IOPAMIDOL 76% 100 ML INFUS BTL 100 ML ONE; +VANC1.756 IV; +[UNRECOGNIZED DRUG - CODE] IVP
== END ==
LOC: AMB 20:08
PROVIDERS: ATTEND Nurse Practitioner
DX: R10.9 Unspecified abdominal pain (principal); R53.1 Weakness
CPT/HCPCS: A0425; A0427

== ENCOUNTER → 2018-10-18 | Outpatient (REF) ==
[~2018-10-18] MED LIST changes: +ASPI-1471 PO; +CEFE2VIA13 IVP; +ENOX40DI9 SC; +LISI5TAB25 PO; +VANC1.756 IV; +[UNRECOGNIZED DRUG - CODE] IVP
== END ==
LOC: AMB 10:29
PROVIDERS: ATTEND Nurse Practitioner
DX: Z02.9 Encounter for administrative examinations, unspecified (principal)
CPT/HCPCS: A0425; A0428

== ENCOUNTER → 2018-10-30 | Outpatient (CLI) | payer MEDICARE, OTHER ==
[~2018-10-30] MED LIST changes: -ASPI-1471 PO; -LISI5TAB25 PO
[2018-10-30 09:20] LABS: PLATELET COUNT, AUTOMATED 421 K/uL (150-450)
== END ==
LOC: LAB 09:06
PROVIDERS: ATTEND Family Medicine
DX: C25.9 Malignant neoplasm of pancreas, unspecified (principal); K83.09 Other cholangitis; R17 Unspecified jaundice; R19.7 Diarrhea, unspecified; R63.4 Abnormal weight loss
CPT/HCPCS: 36415; 82040; 82150; 82247; 82248; 82310; 82374; 82435; 82565; 82947; 83690; 84075; 84132; 84155; 84295; 84450; 84460; 84520; 85025

== ENCOUNTER 2018-11-13 00:37 | Day surgery (SDC) | payer MEDICARE, OTHER ==
[~2018-11-13] VITALS: Ht 180.3 cm; Wt 89.8 kg
[~2018-11-13 00:37] MED LIST changes: +ASPI-1471 PO; +LISI5TAB25 PO
[2018-11-13] MEDS ORDERED: fentaNYL CITR 100 MCG/2 ML AMP ONE (10:30)
[2018-11-13] MEDS ORDERED: ONDANSETRON 4 MG/2 ML VIAL ONE (10:30)
[2018-11-13] MEDS ORDERED: PROPOFOL EMUL(*) 10MG/ML 20 ML 20 ML ONE (10:30)
[2018-11-13] MEDS ORDERED: LIDOCAINE MPF 1% 5 ML VIAL ONE (10:30)
[2018-11-13] MEDS ORDERED: DEXAMETHASONE SOD 4 MG/ML VIAL ONE (10:30)
[2018-11-13] MEDS ORDERED: KETAMINE HCL-NS 50 MG/5 ML SYR ONE (10:31)
[2018-11-13] MEDS ORDERED: NORMOSOL R SOLN(*) 1000 ML BAG 1,000 ML IV PRN (11:00)
[2018-11-13] MEDS ORDERED: LIDOCAINE/SOD BICARB 8.4% SYR ID ONE (11:00)
[2018-11-13] MEDS ORDERED: FAMOTIDINE 20 MG TAB PO ONE (11:00)
[2018-11-13] MEDS ORDERED: MIDAZOLAM 2 MG/2 ML VIAL IVP PRN (11:00)
[2018-11-13 11:03] VITALS: BP 133/86
[2018-11-13] MEDS ORDERED: ceFAZolin(*) 2GM/D5W 50ML 50 ML IVPB ONE (11:20)
[2018-11-13] MEDS ORDERED: HEPARIN (PORC) 5000 UN/ML VIAL ONE (11:49)
[2018-11-13] MEDS ORDERED: BUPIVACAINE/EPI 0.5% 50ML VIAL INFIL ONE (11:49)
[2018-11-13] MEDS ORDERED: NS(*) 0.9% 10 ML VIAL 10 ML ONE (11:49)
--- NOTE | 2018-11-13 11:50 | NUR ---
1145 LAB AT BEDSIDE TO DRAW SECOND HGB POST BX Addendum: 11/13/18 at 1151 by ARBEN VASQUEZ RN DISREGARD ABOVE COMMENT, DOCUMENTED ON WRONG PT
[2018-11-13] MEDS ORDERED: HEPARIN SOD LCK FLSH 100 UN/ML ONE (11:58)
[2018-11-13] MEDS ORDERED: NS(*) 0.9% 10 ML VIAL 50 ML ONE (12:05)
--- NOTE | 2018-11-13 13:15 | Short(Outpt) Discharge Summary ---
Discharge Summary Reason for Hosp/Final Diag: (1) Pancreatic cancer Hospital Course & Plan: pt presented for mediport placement. he tolerated the procedure well and will be discharged home when criteria met. Departure Discharge to: Home Discharge Instructions Home Meds Reported Medications Aspirin (ASPIR 81) 81 Mg Tablet.dr, 81 MG PO QDAY, TAB 11/12/18 Lisinopril (LISINOPRIL) 5 Mg Tablet, 0.5 TAB PO QDAY, TAB 11/12/18 Discontinued Scripts Vancomycin/0.9 % Sod Chloride (Vanco 1.75 gm/500 ml-0.9% NaCl) 1.75 Gram/500 Ml Plast..bag, 1.75 G IV Q12H@1100,2300, #1 Prov:VANI JOSEPH MD 10/18/18 Hydrocortisone Sod Succ/Pf (SOLU-CORTEF 100 MG VIAL) 100 Mg/2 Ml Vial, 100 MG IVP Q8H for 1 Day, VIAL Prov:VANI JOSEPH MD 10/18/18 Enoxaparin Sodium (ENOXAPARIN SODIUM) 40 Mg/0.4 Ml Disp.syrin, 40 MG SC Q24H for 1 Day, Prov:VANI JOSEPH MD 10/18/18 Cefepime Hcl (CEFEPIME HCL) 2 Gm Vial, 2 GM IVP 1030,2230 for 1 Day, VIAL Prov:VANI JOSEPH MD 10/18/18 Diet: Regular Activity: As Tolerated Special Instructions: f/u oncology as intructed. f/u dr. ck holden prn. ok to shower tomorrow. STEVE HOLDEN Nov 13, 2018 13:15
--- NOTE | 2018-11-13 13:20 | Post Operative Progress Note ---
Post Operative Progress Note Date: Nov 13, 2018 Time: 13:12 Surgeon: dr. ck holden #[id number] Mason Helper: none Anesthesia: gen, local dr. belle Pre-Op Diagnosis: pancreatic cancer Post-Op Diagnosis: same Procedure(s): left ij mediport placement with sono and fluoro Specimen Removed:(May be N/A): n/a Complications: none Estimated Blood Loss: minimal Date OP Note Dictated: Nov 13, 2018 Time OP Note Dictated: 13:13 STEVE HOLDEN Nov 13, 2018 13:20
[2018-11-13 13:43] VITALS: BP 131/89
[2018-11-13 14:00] VITALS: BP 120/77
[2018-11-13 14:03] VITALS: BP 107/81
--- NOTE | 2018-11-13 14:06 | OPERATIVE REPORT 1 ---
EVENT DATE: November 13, 2018 SURGEON: Kishan Russo MD ANESTHESIOLOGIST: Riley Sam MD ANESTHESIA: General and local. GLASS EDGER: None. PREOPERATIVE DIAGNOSIS Pancreatic cancer. POSTOPERATIVE DIAGNOSIS Pancreatic cancer. PROCEDURE PERFORMED Placement of left internal jugular Mediport with fluoroscopic guidance. FLUIDS IV crystalloid. ESTIMATED BLOOD LOSS Minimal. SPECIMENS None. COMPLICATIONS None. INDICATIONS This is a 78-year old male with pancreatic cancer. He needs a Mediport for administration of chemotherapy. Risks and benefits of the procedure were explained and consent was signed. DESCRIPTION OF PROCEDURE Patient was taken to the operating room and placed in the supine position. General anesthesia was administered per the Anesthesia team. Patient was prepped and draped in the normal sterile fashion. Cook needle was advanced under ultrasound guidance into the internal jugular vein. Dark red, nonpulsatile blood was returned. Guidewire was advanced. Cook needle was removed. Fluoroscopy was used to confirm appropriate placement of the guidewire. Local analgesia was injected into the left chest wall and a 3 cm transverse incision was made. An inferior pocket was created. A small incision was made at entry site of the guidewire. The port-a-cath had been checked for leak and there was none. It was then tunneled through the subcutaneous tissue from the left chest wall to the left neck incision. The port was secured in place with 2-0 Prolene stitches. Fluoroscopy was used to cut the catheter to the appropriate size. Dilator and sheath were advanced over the guidewire. Dilator and guidewire were removed. Catheter was advanced through the sheath and the tear-away sheath was removed. Fluoroscopy confirmed appropriate placement of the tip of the catheter and a good curve at the neck. The catheter was aspirated and flushed with dilute heparin saline. It aspirated and flushed easily. The left chest wall incision was closed with deep dermal 3-0 Vicryl interrupted sutures followed by a running 4-0 Monocryl subcuticular stitch. Neck incision was closed with interrupted 4-0 Monocryl subcuticular stitch. Appropriate dressings were applied. The patient tolerated the procedure well without complications. [facility]
--- NOTE | 2018-11-13 14:33 | RADIOLOGY IMAGING REPORT ---
FACILITY: [facility] [place] PATIENT NAME: Kristofer Arredondo : 1940 MR: [id number] V: [id number] EXAM DATE: ORDERING PHYSICIAN: STEVE NEGRETE TECHNOLOGIST: Location: [facility] Patient: Kristofer Arredondo : 1940 Visit/Account:[id number] Date of Sevice: 11/13/2018 CHEST SINGLE AP History: line placement FINDINGS: Comparison studies: Comparison study 10/16/2018 Tubes and Lines: Right IJ central line is been removed and there is been interval placement of a po rt from a left IJ approach. Tip of the port line projects over the cavoatrial junction. Lungs and pleura: Mild chronic interstitial opacities are seen through both lungs unchanged. These are slightly worse on the left side. Mediastinum: normal. Cardiac silhouette: normal . Osseous structures: Unremarkable for age . IMPRESSION: Implanted chest port appears appropriately positioned. No interval change in cardiopulmonary status. Report Dictated By: Guille Preston MD at 11/13/2018 2:23 PM Report E-Signed By: Guille Preston MD at 11/13/2018 2:25 PM WSN:[id number]
--- NOTE | 2018-11-13 15:32 | RADIOLOGY IMAGING REPORT ---
FACILITY: [facility] - [place] PATIENT NAME: Kristofer Arredondo : 1940 MR: [id number] V: [id number] EXAM DATE: ORDERING PHYSICIAN: STEVE NEGRETE TECHNOLOGIST: Location: [facility] - [place], [place] Patient: Kristofer Arredondo : 1940 Visit/Account:[id number] Date of Sevice: 11/13/2018 Technique: FLUORO NG TUBE PLACEMENT HISTORY: PORT PLACEMENT Comparison studies: 10/17/2018 FINDINGS: Operative imaging was obtained central chest. There is partial visualization of a chest por t with the tip overlying the cavoatrial junction. Air Kerma: 1.2 mGy IMPRESSION: 1. Operative imaging as above. Please see procedural report for complete details. Report Dictated By: Wyatt Robin DO at 11/13/2018 3:24 PM Report E-Signed By: Wyatt Robin DO at 11/13/2018 3:25 PM WSN:[id number]
[2018-11-15] MEDS ORDERED: PROC10TA4 PO (11:48)
[2018-11-15] MEDS ORDERED: ONDASETRON PO (11:50)
[2018-11-15] MEDS ORDERED: ONDA8TAB91 PO (13:34)
== END 2018-11-13 13:43 | disposition home or self-care (01) ==
LOC: OR 00:37
PROVIDERS: ATTEND Surgery
DX: C25.9 Malignant neoplasm of pancreas, unspecified (principal); I48.2 Chronic atrial fibrillation; I10 Essential (primary) hypertension
CPT/HCPCS: 36561; 71045; 77001; A9270; C1788; J1100; J2001; J2405; J2704; J3010; J3490; J0690; J1644